=== PATIENT | female | born 1980 | race Caucasian/White ===

== ENCOUNTER 2017-11-06 11:34 | Emergency (ER) | payer MEDICAID ==
[~2017-11-06] VITALS: Ht 160 cm; Wt 62.1 kg
[2017-11-06 11:53] VITALS: Ht 160 cm; Wt 62.1 kg
[2017-11-06 12:58] VITALS: BP 130/65
== END 2017-11-06 12:58 | disposition home or self-care (01) ==
LOC: ED 11:34
DX: H10.13 Acute atopic conjunctivitis, bilateral (principal); J45.909 Unspecified asthma, uncomplicated